=== PATIENT | female | born 1950 | race Caucasian/White ===

== ENCOUNTER 2022-04-01 15:09 | Inpatient (IN) | payer OTHER ==
[2022-04-01 16:26] LABS: Troponin I 0.028 ng/mL (< 0.028)
[2022-04-01] MEDS ORDERED: Senokot S 8.6-50 MG TAB PO PRN (16:42)
[2022-04-01] MEDS ORDERED: Ondansetron PF 4 MG/2 ML Vial IVP PRN (16:42)
[2022-04-01] MEDS ORDERED: Ondansetron ODT 4 MG TAB PO PRN (16:42)
[2022-04-01] MEDS ORDERED: Furosemide 40 MG/4 ML VIAL SLOW IVP SCH (16:48)
[2022-04-01] MEDS ORDERED: Nitroglycerin 0.4 MG TAB (25 Tab Bottle) SL PRN (17:25)
[2022-04-01] MEDS ORDERED: Electrolyte Replacement Protocol 1 EACH FS SCH (17:30)
[2022-04-01] MEDS ORDERED: Furosemide 40 MG/4 ML VIAL ONE (20:20)
[2022-04-01 22:23] LABS: CKMB 2.8 ng/mL (0-6.6)
[2022-04-02 04:40] LABS: #Basophils 0.1 thou/uL (0.0-0.2); #Lymphocytes 2.2 thou/uL (1.20-3.40); #Monocytes 1.1 thou/uL (0.11-0.59); #Neutrophils 7.8 thou/uL (1.40-6.50); %Basophils 0.5 % (0.0-1.0); %Eosinophils 0.2 % (0.0-10.0); %Lymphocytes 19.7 % (21.0-51.0); %Monocytes 10.1 % (0.0-10.0); %Neutrophils 69.6 % (42.0-75.0); Hemoglobin 13.8 g/dL (12.0-16.0); Mean Corpuscular HGB CONC 31.2 g/dL (32.0-36.0); Mean Corpuscular Volume 96.1 fL (78.0-98.0); Mean Platelet Volume 7.1 fL (7.4-10.4); Platelet Count 298 thou/uL (130-400); RBC Distribution Width 12.7 % (11.5-14.5); Red Blood Cell (RBC) Count 4.59 mill/uL (4.20-5.40); White Blood Cell (WBC) Count 11.2 thou/uL (4.8-10.8)
[2022-04-02 05:00] LABS: Anion Gap 15 mmol/L (10-20); BUN (Urea Nitrogen) 27 mg/dL (9.8-20.1); Calc. Creatinine Clearance 0 mL/min (70-130); Calcium 9.1 mg/dL (7.8-10.44); Carbon Dioxide 28 mmol/L (23-31); Chloride 101 mmol/L (98-107); Estimated GFR 60; Glucose 116 mg/dL (83-110); Potassium 3.7 mmol/L (3.5-5.1); Sodium 140 mmol/L (136-145)
[2022-04-02 05:02] LABS: Magnesium 2.3 mg/dL (1.6-2.6)
[2022-04-02 05:06] LABS: Troponin I 0.031 ng/mL (< 0.028)
[2022-04-02] MEDS ORDERED: Furosemide 40 MG/4 ML VIAL ONE (06:50)
[2022-04-02] MEDS: Furosemide 40 MG/4 ML VIAL SLOW IVP SCH ×2 (06:54→15:18)
[2022-04-02] MEDS ORDERED: methylPREDNISolone Sod Succ 40 MG VIAL ONE ×2 (08:23)
[2022-04-02] MEDS ORDERED: Aspirin Chewable 81 MG TAB ONE (08:23)
[2022-04-02] MEDS: Anastrozole 1 MG TAB PO SCH (08:28)
[2022-04-02] MEDS: Aspirin 81 mg Enteric Coated Tablet PO SCH (08:29)
[2022-04-02] MEDS ORDERED: methylPREDNISolone Sod Succ 40 MG VIAL IVP SCH (09:00)
[2022-04-02 10:19] LABS: SARS-CoV-2 NAA Rapid Test Not Detected (NotDetected)
[2022-04-02 15:25] VITALS: BMI 29.0
[2022-04-02] MEDS ORDERED: Communication Order-Pharmacy FS SCH (18:00)
[2022-04-02] MEDS ORDERED: diphenhydrAMINE 25 MG CAP PO SCH (18:45)
[2022-04-02] MEDS ORDERED: Famotidine 20 MG TAB PO SCH (18:45)
[2022-04-02] MEDS ORDERED: predniSONE 20 MG TAB PO SCH (18:45)
[2022-04-02] MEDS ORDERED: Furosemide 40 MG/4 ML VIAL SLOW IVP SCH (19:00)
[2022-04-02] MEDS: Mometasone 100 MCG/PUFF (1 INHALER) INH SCH (21:02)
[2022-04-02] MEDS: Atorvastatin Calcium 10 MG TAB PO SCH (21:02)
[2022-04-03] MEDS: diphenhydrAMINE 25 MG CAP PO SCH ×2 (00:23→05:17)
[2022-04-03] MEDS: Famotidine 20 MG TAB PO SCH ×2 (00:23→05:17)
[2022-04-03] MEDS: predniSONE 20 MG TAB PO SCH ×3 (00:23→05:20)
[2022-04-03] MEDS: Anastrozole 1 MG TAB PO SCH (05:17)
[2022-04-03] MEDS: Spironolactone 25 MG TAB PO SCH (05:17)
[2022-04-03] MEDS: Mometasone 100 MCG/PUFF (1 INHALER) INH SCH ×2 (05:17→18:25)
[2022-04-03] MEDS: Carvedilol 3.125 MG TAB PO SCH ×2 (05:18→18:09)
[2022-04-03] MEDS: Pramipexole Di-HCl 0.25 MG TAB PO SCH (05:19)
[2022-04-03] MEDS: Aspirin 81 mg Enteric Coated Tablet PO SCH (05:19)
[2022-04-03 05:45] LABS: Anion Gap 16 mmol/L (10-20); BUN (Urea Nitrogen) 36 mg/dL (9.8-20.1); Calc. Creatinine Clearance 58 mL/min (70-130); Calcium 9.8 mg/dL (7.8-10.44); Carbon Dioxide 30 mmol/L (23-31); Chloride 99 mmol/L (98-107); Estimated GFR 56; Glucose 123 mg/dL (83-110); Magnesium 2.4 mg/dL (1.6-2.6); Potassium 4.2 mmol/L (3.5-5.1); Sodium 141 mmol/L (136-145)
[2022-04-03] MEDS ORDERED: Adenosine 6 MG/2 ML VIAL ONE (09:03)
[2022-04-03] MEDS ORDERED: Nitroglycerin 100MG/250ML BOT 250 ML ONE (09:03)
[2022-04-03] MEDS ORDERED: Heparin 10,000 UNITS/ 10 ML VIAL ONE (09:03)
[2022-04-03] MEDS ORDERED: Lidocaine 1% (PF) 30 ML VIAL ONE (09:19)
[2022-04-03] MEDS ORDERED: Iopamidol 370 76% 50 ML VIAL FS ONE (10:32)
[2022-04-03] MEDS ORDERED: Iopamidol 370 76% 100 ML VIAL ONE (10:32)
[2022-04-03] MEDS ORDERED: Midazolam HCl 2 mg/2 ml Vial ONE (11:56)
[2022-04-03] MEDS ORDERED: Fentanyl 100 MCG/2 ML VIAL ONE (11:56)
[2022-04-03] MEDS ORDERED: Verapamil 5 MG/2 ML VIAL ONE (12:08)
[2022-04-03] MEDS ORDERED: Furosemide 40 MG/4 ML VIAL SLOW IVP SCH (14:00)
[2022-04-03] MEDS: Atorvastatin Calcium 10 MG TAB PO SCH (20:05)
[2022-04-04 04:24] LABS: Anion Gap 14 mmol/L (10-20); BUN (Urea Nitrogen) 34 mg/dL (9.8-20.1); Calc. Creatinine Clearance 61 mL/min (70-130); Calcium 9.6 mg/dL (7.8-10.44); Carbon Dioxide 31 mmol/L (23-31); Chloride 100 mmol/L (98-107); Estimated GFR 58; Glucose 119 mg/dL (83-110); Magnesium 2.4 mg/dL (1.6-2.6); Potassium 3.5 mmol/L (3.5-5.1); Sodium 141 mmol/L (136-145)
[2022-04-04] MEDS: Mometasone 100 MCG/PUFF (1 INHALER) INH SCH ×2 (07:08→18:24)
[2022-04-04] MEDS: Spironolactone 25 MG TAB PO SCH (08:47)
[2022-04-04] MEDS: predniSONE 20 MG TAB PO SCH (08:47)
[2022-04-04] MEDS: Carvedilol 3.125 MG TAB PO SCH ×2 (08:47→17:21)
[2022-04-04] MEDS: Pramipexole Di-HCl 0.25 MG TAB PO SCH (08:48)
[2022-04-04] MEDS: Aspirin 81 mg Enteric Coated Tablet PO SCH (08:49)
[2022-04-04] MEDS: Anastrozole 1 MG TAB PO SCH (08:49)
[2022-04-04] MEDS ORDERED: Potassium Chloride 20 MEQ TAB PO SCH (12:45)
[2022-04-04] MEDS: Acetaminophen 325 MG TAB PO PRN (20:22)
[2022-04-04] MEDS: Atorvastatin Calcium 10 MG TAB PO SCH (20:23)
[2022-04-05] MEDS: Mometasone 100 MCG/PUFF (1 INHALER) INH SCH ×2 (06:55→18:31)
[2022-04-05] MEDS: Carvedilol 3.125 MG TAB PO SCH ×2 (10:32→16:33)
[2022-04-05] MEDS: Spironolactone 25 MG TAB PO SCH (10:32)
[2022-04-05] MEDS: Anastrozole 1 MG TAB PO SCH (10:32)
[2022-04-05] MEDS: predniSONE 20 MG TAB PO SCH (10:32)
[2022-04-05] MEDS: Pramipexole Di-HCl 0.25 MG TAB PO SCH (10:33)
[2022-04-05] MEDS: Aspirin 81 mg Enteric Coated Tablet PO SCH (10:33)
[2022-04-05] MEDS: Acetaminophen 325 MG TAB PO PRN (19:18)
[2022-04-05] MEDS: Atorvastatin Calcium 10 MG TAB PO SCH (20:26)
[2022-04-06] MEDS ORDERED: Carvedilol 3.125 MG TAB PO SCH (07:15)
[2022-04-06] MEDS: Mometasone 100 MCG/PUFF (1 INHALER) INH SCH ×2 (07:32→18:22)
[2022-04-06 08:03] LABS: Anion Gap 10 mmol/L (10-20); BUN (Urea Nitrogen) 23 mg/dL (9.8-20.1); Calc. Creatinine Clearance 68 mL/min (70-130); Calcium 8.9 mg/dL (7.8-10.44); Carbon Dioxide 33 mmol/L (23-31); Chloride 101 mmol/L (98-107); Estimated GFR 68; Glucose 111 mg/dL (83-110); Potassium 3.8 mmol/L (3.5-5.1); Sodium 140 mmol/L (136-145)
[2022-04-06] MEDS: Carvedilol 6.25 MG TAB PO SCH ×2 (09:31→16:19)
[2022-04-06] MEDS: Anastrozole 1 MG TAB PO SCH (09:32)
[2022-04-06] MEDS: predniSONE 20 MG TAB PO SCH (09:32)
[2022-04-06] MEDS: Spironolactone 25 MG TAB PO SCH (09:32)
[2022-04-06] MEDS: Pramipexole Di-HCl 0.25 MG TAB PO SCH (09:32)
[2022-04-06] MEDS: Aspirin 81 mg Enteric Coated Tablet PO SCH (09:33)
[2022-04-06] MEDS: Atorvastatin Calcium 10 MG TAB PO SCH (21:01)
[2022-04-07] MEDS: Mometasone 100 MCG/PUFF (1 INHALER) INH SCH (07:44)
[2022-04-07 08:24] VITALS: TEMP 98
[2022-04-07] MEDS: Aspirin 81 mg Enteric Coated Tablet PO SCH (08:50)
[2022-04-07] MEDS: Anastrozole 1 MG TAB PO SCH (08:50)
[2022-04-07] MEDS: Pramipexole Di-HCl 0.25 MG TAB PO SCH (08:50)
[2022-04-07] MEDS: Carvedilol 6.25 MG TAB PO SCH (08:50)
[2022-04-07] MEDS: Spironolactone 25 MG TAB PO SCH (08:50)
[2022-04-07] MEDS ORDERED: Sacubitril 49 MG/Valsartan 51 MG TABLET PO SCH (09:00)
[2022-04-07 11:56] VITALS: BP 104/56
== END 2022-04-07 14:00 | disposition home or self-care (01) | DRG 280 ==
LOC: ERS 15:09 → ERHOLD 16:02 → 2NO 19:31 → OBSVTOIN 04-03 18:09
PROVIDERS: ADMIT Internal Medicine; ATTEND Internal Medicine
PROC: 4A023N7 Measurement of Cardiac Sampling and Pressure, Left Heart, Percutaneous Approach (ICD-10-PCS; principal; 2022-04-03)
PROC: B2151ZZ Fluoroscopy of Left Heart using Low Osmolar Contrast (ICD-10-PCS; 2022-04-03)
PROC: B2111ZZ Fluoroscopy of Multiple Coronary Arteries using Low Osmolar Contrast (ICD-10-PCS; 2022-04-03)
DX: I25.118 Atherosclerotic heart disease of native coronary artery with other forms of angina pectoris (principal); I21.A1 Myocardial infarction type 2; I50.43 Acute on chronic combined systolic (congestive) and diastolic (congestive) heart failure; J96.01 Acute respiratory failure with hypoxia; I47.20 Ventricular tachycardia, unspecified; J44.1 Chronic obstructive pulmonary disease with (acute) exacerbation; Z88.5 Allergy status to narcotic agent; Z20.822 Contact with and (suspected) exposure to COVID-19; Z91.041 Radiographic dye allergy status; E11.51 Type 2 diabetes mellitus with diabetic peripheral angiopathy without gangrene; I25.5 Ischemic cardiomyopathy; Z87.891 Personal history of nicotine dependence; Z98.890 Other specified postprocedural states; I11.0 Hypertensive heart disease with heart failure; C50.919 Malignant neoplasm of unspecified site of unspecified female breast; Z79.811 Long term (current) use of aromatase inhibitors; Z79.1 Long term (current) use of non-steroidal anti-inflammatories (NSAID); Z79.899 Other long term (current) drug therapy; Z90.13 Acquired absence of bilateral breasts and nipples; Z90.710 Acquired absence of both cervix and uterus; Z82.49 Family history of ischemic heart disease and other diseases of the circulatory system; R91.1 Solitary pulmonary nodule; E78.5 Hyperlipidemia, unspecified
CPT/HCPCS: 36415; 80048; 82553; 83735; 84484; 93005; 93010; 93306; 93458; 93880; 94640; 96374; 96375; 96376; 99156; 99157; C1769; C1894; G0378; J0153; J1644; J1940; J2001; J2250; J2920; J3010; J7512; J7620; Q9967; U0002

== ENCOUNTER 2022-05-19 12:55 | Outpatient (CLI) | payer OTHER | END 2022-05-19 12:56 | disposition home or self-care (01) | LOC: BICMAMMO 12:55 | PROVIDERS: ATTEND Internal Medicine Hematology & Oncology | DX: Z12.31 Encounter for screening mammogram for malignant neoplasm of breast (principal); R92.8 Other abnormal and inconclusive findings on diagnostic imaging of breast; Z85.3 Personal history of malignant neoplasm of breast; Z90.11 Acquired absence of right breast and nipple | CPT/HCPCS: 77065; 77080; G0279 ==